=== PATIENT | male | born 1960 | race American Indian/Alaskan Native ===

== ENCOUNTER 2018-02-20 12:49 | Emergency (ER) | payer MEDICAID ==
[2018-02-20 20:37] LABS: Basophils # (Auto) 0.1 K/mm3 (0.0-0.1); Basophils % (Auto) 0.6 % (0.0-1.8); Eosinophils # (Auto) 0.2 K/mm3 (0.0-0.4); Eosinophils % (Auto) 2.7 % (0.0-4.3); Hematocrit 48.3 % (35.5-45.6); Hemoglobin 15.5 gm/dl (11.8-15.2); Lymphocytes # (Auto) 2.3 K/mm3 (1.2-5.4); Lymphocytes % (Auto) 24.6 % (13.4-35.0); Mean Corpuscular HGB Conc 32 % (32-34); Mean Corpuscular Hemoglobin 30 pg (28-32); Mean Corpuscular Volume 95 fl (84-94); Monocytes % (Auto) 11.1 % (0.0-7.3); Platelet Count 274 K/mm3 (140-440); Red Blood Count 5.09 M/mm3 (3.65-5.03); Red Cell Distribution Width 12.8 % (13.2-15.2)
--- NOTE | 2018-02-20 20:39 | Emergency Department Report ---
ED Psych HPI - General Chief Complaint: Medical Clearance Stated Complaint: SUBSTANCE ABUSE Time Seen by Provider: 02/20/18 20:27 Source: patient Mode of arrival: Ambulatory - History of Present Illness Initial Comments: Patient is 57 years old -[place] male with history of CABG and hypertension. Patient presented to the ER requesting detoxification from narcotics he stated that he's been using heroine, cocaine and alcohol started back in . Patient stated that he had one period of detox but since 1999 he did not have any detoxification. Patient denied any chest pain, shortness of breath or fever. Patient denied any auditory or visual hallucination. No suicidal or homicidal ideation. MD Complaint: other (detox from narcotics) - Related Data Previous Rx's Medication Instructions Recorded Last Taken Type HYDROcodone/APAP 7.5-325 [[place] 1 each PO Q6HR PRN #20 tablet 10/07/13 Unknown Rx 7.5/325 mg] Allergies Allergy/AdvReac Type Severity Reaction Status Date / Time No Known Allergies Allergy Unverified 10/07/13 14:39 ED Review of Systems ROS: Stated complaint: SUBSTANCE ABUSE Other details as noted in HPI Comment: All other systems reviewed and negative Constitutional: denies: chills, fever Respiratory: denies: cough, orthopnea, shortness of breath, SOB with exertion Cardiovascular: denies: chest pain, palpitations, dyspnea on exertion Gastrointestinal: denies: abdominal pain, nausea, vomiting, diarrhea, constipation, hematemesis, hematochezia Musculoskeletal: denies: back pain Neurological: denies: headache, weakness, numbness, paresthesias, confusion, abnormal gait Psychiatric: denies: anxiety, depression, auditory hallucinations, visual hallucinations, homicidal thoughts, suicidal thoughts ED Past Medical Hx - Past Medical History Hx Hypertension: Yes Hx Heart Attack/AMI: Yes (CABG) Hx Psychiatric Treatment: Yes (substance abuse,depression) Additional medical history: High cholesterol - Surgical History Additional Surgical History: cabbage x2-no stents - Social History Smoking Status: Current Every Day Smoker Substance Use Type: Alcohol, Cocaine, Heroin, Marijuana, Methamphetamines, Other - Medications Home Medications: Home Medications Medication Instructions Recorded Confirmed Last Taken Type HYDROcodone/APAP 7.5-325 [[place] 1 each PO Q6HR PRN #20 tablet 10/07/13 Unknown Rx 7.5/325 mg] ED Physical Exam - General Limitations: No Limitations General appearance: alert, in no apparent distress - Head Head exam: Present: atraumatic, normocephalic, normal inspection - Eye Eye exam: Present: normal appearance, PERRL - ENT ENT exam: Present: normal exam, normal orophraynx, mucous membranes moist - Neck Neck exam: Present: normal inspection, full ROM. Absent: tenderness, meningismus, lymphadenopathy, thyromegaly - Respiratory Respiratory exam: Present: normal lung sounds bilaterally. Absent: respiratory distress, wheezes, rales, rhonchi, stridor, chest wall tenderness, accessory muscle use, decreased breath sounds, prolonged expiratory - Cardiovascular Cardiovascular Exam: Present: regular rate, normal rhythm, normal heart sounds - GI/Abdominal GI/Abdominal exam: Present: soft, normal bowel sounds. Absent: distended, tenderness, guarding, rebound, rigid, diminished bowel sounds, organomegaly, mass, bruit, pulsatile mass, hernia - Extremities Exam Extremities exam: Present: normal inspection, full ROM, normal capillary refill - Back Exam Back exam: Present: normal inspection, full ROM. Absent: CVA tenderness (R), CVA tenderness (L) - Neurological Exam Neurological exam: Present: alert, oriented X3, CN II-XII intact, normal gait - Skin Skin exam: Present: warm, intact, normal color. Absent: cyanosis ED Course Vital Signs 02/20/18 13:06 Temperature 98.3 F Pulse Rate 69 Respiratory 18 Rate Blood Pressure 156/86 O2 Sat by Pulse 98 Oximetry Critical care attestation.: If time is entered above; I have spent that time in minutes in the direct care of this critically ill patient, excluding procedure time. ED Disposition Clinical Impression: Substance abuse, Desire for detoxification Disposition: [id number] PSY HOSP/PSY UNIT Is pt being admited?: No Condition: Stable Referrals: PRIMARY CARE, [Primary Care Provider] - 3-5 Days
[2018-02-20 20:51] LABS: BUN/Creatinine Ratio 15; Blood Urea Nitrogen 15 mg/dL (9-20); Calcium 9.4 mg/dL (8.4-10.2); Hemolysis Index 14
[2018-02-20 23:56] LABS: Bilirubin,Urine NEG (Negative); Blood,Urine NEG (Negative); Color,Urine Yellow (Yellow); Protein,Urine <15 mg/dL mg/dL (Negative); Urobilinogen,Urine < 2.0 mg/dL (<2.0)
[2018-02-20 23:59] LABS: Amphetamine Screen,Urine PRESUMPTIVE NEGATIVE; Benzodiazepines Screen,Urine PRESUMPTIVE NEGATIVE; Methadone Screen,Urine PRESUMPTIVE NEGATIVE; Opiate Screen,Urine PRESUMPTIVE NEGATIVE
[2018-02-21 00:22] LABS: Cannabinoid Screen,Urine PRESUMPTIVE POSITIVE; Cocaine Screen,Urine PRESUMPTIVE POSITIVE
[2018-02-21 07:58] VITALS: BP 128/78
--- NOTE | 2018-02-21 12:34 | Consultation ---
History of Present Illness - Reason for Consult Consult date: 02/21/18 Reason for consult: Mental Health Evaluation Requesting physician: YI NGUYEN - Chief Complaint Chief complaint: "I want the help" - History of Present Psychiatric Illness 57 years old -Maldivian male with history of CABG and hypertension. Patient presented to the ER requesting detoxification from narcotics. Today the patient is calm and cooperative during the assessment. He stated that he has used recreational drugs for many years. He stated that it's time to "stopped." He stated that his recreational drug use has caused him serious cardiac problems. He stated that he last used heroin 3 days ago. He denies any withdrawals when asked. He denies being depressed, but does acknowledge getting upset with himself reference his decisions. He stated multiple rehab services in the past, but would always relapse. He denies SI/HI's and AVH's. He denies erratic sleep and a poor appetite. He denies excessive alcohol consumption (etoh ). Medications and Allergies Allergies Allergy/AdvReac Type Severity Reaction Status Date / Time No Known Allergies Allergy Unverified 10/07/13 14:39 Home Medications Medication Instructions Recorded Confirmed Last Taken Type HYDROcodone/APAP 7.5-325 [[place] 1 each PO Q6HR PRN #20 tablet 10/07/13 Unknown Rx 7.5/325 mg] Past psychiatric history - Past Medical History Past Medical History: other (high cholesterol) Past Surgical History: CABG - past Psychiatric treatment and history psychiatric treatment history: Rehab services in the past. Denies a fam psy hx. - Social History Social history: lives with family Mental Status Exam - Vital signs Last Vital Signs Temp 97.7 F 02/21/18 07:51 Pulse 58 L 02/21/18 07:51 Resp 15 02/21/18 07:51 BP 128/78 02/21/18 07:51 Pulse Ox 98 02/21/18 07:51 - Exam Narrative exam: MSE: Appearance: calm, cooperative Behavior: regular eye contact Speech: regular rate and tone Mood: "okay" Affect: congruent to mood Thought Process: linear Thought Content: denies SI/HI's and AVH's Motor Activity: sitting up in bed Cognition: A/O x3 Insight: appropriate Judgment: appropriate Results Result Diagrams: 02/20/18 20:26 02/20/18 20:26 Abnormal lab results 02/20/18 02/20/18 02/20/18 Range/Units 20:26 20:26 20:26 RBC 5.09 H (3.65-5.03) M/mm3 Hgb 15.5 H (11.8-15.2) gm/dl Hct 48.3 H (35.5-45.6) % MCV 95 H (84-94) fl RDW 12.8 L (13.2-15.2) % Clay % (Auto) 11.1 H (0.0-7.3) % [place] # 1.0 H (0.0-0.8) K/mm3 Chloride 97.6 L (98-107) mmol/L Glucose 103 H (75-100) mg/dL Salicylates < 0.3 L (2.8-20.0) mg/dL All other labs normal. Assessment and Plan Assessment and plan: Impression: Substance Use DO (cocaine). Cannabis Use DO. Hx of Opioid Use DO. Today the patient is calm and cooperative during the assessment. No acute withdrawals noted (opiates). DDx: R/O Mood DO Recommendation/Plan: Patient transferred to RTC for detox.
== END 2018-02-21 09:15 ==
LOC: ED 12:49
DX: F19.10 Other psychoactive substance abuse, uncomplicated (principal); I11.0 Hypertensive heart disease with heart failure; F32.9 Major depressive disorder, single episode, unspecified; E78.00 Pure hypercholesterolemia, unspecified; Z95.1 Presence of aortocoronary bypass graft; F17.200 Nicotine dependence, unspecified, uncomplicated
CPT/HCPCS: 36415; 80048; 80307; 81001; 85025; 93005; 93010; 99283; G0480; 80320